=== PATIENT | male | born 1995 | race Caucasian/White ===

== ENCOUNTER 2018-08-11 08:37 | Emergency (ER) | payer OTHER ==
[2018-08-11 08:43] VITALS: BP 139/76
--- NOTE | 2018-08-11 09:39 | ER Document Report ---
ED General - General Chief Complaint: Abscess Stated Complaint: EYE SWOLLEN Time Seen by Provider: 08/11/18 09:27 Notes: Patient is a 22-year-old male that presents to the emergency department for chief complaint of right eye swelling. Patient states that 2 nights ago he noticed a "pimple" above his right eye, he popped it by applying pressure, and it did drain, and then yesterday morning he was wrestling his 3-year-old brother and he was accidentally kicked in that area, causing more swelling over the course of the day so he decided come to the emergency department. He is noticed worsening redness as well and tender to palpate. Denies any fevers, chills, nausea, vomiting, headache, visual change, blurred vision or eye redness itself. He currently rates his pain as a 2 out of 10, describes it as a aching sensation. No other complaints at this time. Past Medical History: Denies chronic medical conditions Past Surgical History: Surgery for undescended testicle Social History: Admits to smoking cigarettes daily, denies alcohol or drug use. Family History: Reviewed and noncontributory for presenting illness Allergies: Reviewed, see documented allergy list. REVIEW OF SYSTEMS: Other than noted above, the 12 point review of systems was reviewed with the patient and were negative, all pertinent findings are included in the HPI. PHYSICAL EXAMINATION: Vital signs reviewed, nursing noted reviewed. GENERAL: Well-appearing, well-nourished and in no acute distress. HEAD: Atraumatic, normocephalic. EYES: There is erythema mild edema located mainly around the right lateral eyebrow, and some preseptal edema as well, no stye present, no conjunctival injection, no pain with extraocular eye movement, EOMI, PERRLA. The left eye is unremarkable. ENT: Moist mucous membranes. NECK: Normal range of motion, supple without lymphadenopathy LUNGS: Breath sounds clear to auscultation bilaterally and equal. No wheezes rales or rhonchi. HEART: Regular rate and rhythm without murmurs EXTREMITIES: Nontender, good range of motion, no pitting or edema. NEUROLOGICAL: No focal neurological deficits. Moves all extremities spontaneously Motor and sensory grossly intact on exam. PSYCH: Normal mood, normal affect. SKIN: Warm, Dry, normal turgor, no rashes or lesions noted on exposed skin TRAVEL OUTSIDE OF THE [place] IN LAST 30 DAYS: No - Related Data Allergies/Adverse Reactions: No Known Allergies Allergy (Verified 08/11/18 08:38) Past Medical History - Social History Smoking Status: Current Every Day Smoker Chew tobacco use (# tins/day): No Frequency of alcohol use: None Drug Abuse: None Family History: Reviewed & Not Pertinent Patient has suicidal ideation: No Patient has homicidal ideation: No Renal/ Medical History: Denies: Hx Peritoneal Dialysis Physical Exam - Vital signs Vitals: Temp Pulse Resp BP Pulse Ox 98.7 F 78 18 139/76 H 98 08/11/18 08:41 08/11/18 08:41 08/11/18 08:41 08/11/18 08:41 08/11/18 08:41 Course - Re-evaluation Re-evalutation: Patient seen and examined, vital signs reviewed. Patient appears well on exam, he did have mild preseptal cellulitis, and tenderness. This was evaluated under ultrasound, there is no appreciable abscess noted, this point will treat with antibiotics and advised warm compresses, patient given prescription for both Keflex and Bactrim and advised to follow-up with her primary care physician. Given strict return precautions patient agreeable to plan of care and discharged. - Vital Signs Vital signs: Temp Pulse Resp BP Pulse Ox 98.7 F 78 18 139/76 H 98 08/11/18 08:41 08/11/18 08:41 08/11/18 08:41 08/11/18 08:41 08/11/18 08:41 Discharge - Discharge Clinical Impression: Facial abscess Condition: Stable Disposition: HOME, SELF-CARE Instructions: Abscess ([facility]), Trimethoprim-Sulfa ([facility]), Cephalexin ([facility]) Additional Instructions: In addition to antibiotics which she should complete the entire course, he should apply warm compress 20 minutes on 20 minutes off at least 4-5 times a day to help with the swelling along your right eye. Please monitor for signs of pain with looking around, or redness in your eye itself, if you develop new symptoms, do not hesitate to return to the emergency department to be evaluated. Prescriptions: Cephalexin Monohydrate [Keflex 500 mg Capsule] 500 mg PO Q8H 5 Days #21 capsule Sulfamethoxazole/Trimethoprim [Bactrim Ds Tablet] 1 each PO BID #14 tablet Referrals: VINNIE DICKINSON MD [ACTIVE STAFF] - Follow up in 3-5 days (or your primary care. )
== END 2018-08-11 09:50 | disposition home or self-care (01) ==
LOC: ER 08:37
DX: L02.01 Cutaneous abscess of face (principal); L03.213 Periorbital cellulitis; F17.210 Nicotine dependence, cigarettes, uncomplicated
CPT/HCPCS: 99283

== ENCOUNTER 2018-12-16 12:34 | Emergency (ER) | payer SELFPAY ==
[2018-12-16 12:41] VITALS: BP 125/64
[2018-12-16] MEDS ORDERED: DOXYCYCLINE HYCLATE 100 MG TABLET PO ONE (13:56)
--- NOTE | 2018-12-16 14:03 | ER Document Report ---
ED Skin Rash/Insect Bite/Abscs - General Chief Complaint: Skin Problem Stated Complaint: SKIN PROBLEM Time Seen by Provider: 12/16/18 13:37 Mode of Arrival: Ambulatory Information source: Patient Notes: 23-year-old male presented to ED for complaint of eczema to his arms legs abdomen back and buttocks. He states he has had eczema his whole life but he is never had these pustules like he does at this time. He is alert oriented respirations regular and unlabored speaking in full sentences. He states he is lost his insurance because he is over 23 and his father had a morning insurance a and he could no longer be on it. He states he has never been to a shadow graph weight operator even though his ask the primary care at [facility] to send him to dermatology multiple times. He states he does have some creams still from home but he was concerned that they may be infected. He is alert oriented respirations regular and unlabored speaking in full sentences. Patient admits that he has been scratching his eczema more than normal. TRAVEL OUTSIDE OF THE [place] IN LAST 30 DAYS: No - HPI Patient complains to provider of: Skin rash/lesion Onset: Other - Chronic Onset/Duration: Persistent Quality of pain: Burning Severity: Moderate Pain Level: 4 Skin Character: Rash, Tenderness, Thickening, Other - Longtime history of eczema he has been scratching his eczema Quality of rash: Itchy, Painful Identify cause: Yes - Chronic history of eczema he has been scratching Exacerbated by: Other - Scratching Relieved by: Denies Similar symptoms previously: Yes Recently seen / treated by doctor: No - Related Data Allergies/Adverse Reactions: No Known Allergies Allergy (Verified 08/11/18 08:38) Past Medical History - General Information source: Patient - Social History Smoking Status: Current Every Day Smoker Cigarette use (# per day): Yes - 3 or 4 cigarettes a day Chew tobacco use (# tins/day): No Smoking Education Provided: Yes - 4 minutes Frequency of alcohol use: Rare Drug Abuse: None Lives with: Family Family History: Reviewed & Not Pertinent Patient has suicidal ideation: No Patient has homicidal ideation: No - Past Medical History Cardiac Medical History: Reports: None Pulmonary Medical History: Reports: None EENT Medical History: Reports: None Neurological Medical History: Reports: None Endocrine Medical History: Reports: None Renal/ Medical History: Reports: Other - Undescended testicle Malignancy Medical History: Reports None GI Medical History: Reports: None Musculoskeletal Medical History: Reports Hx Musculoskeletal Trauma Skin Medical History: Reports Hx Eczema Psychiatric Medical History: Reports: None Traumatic Medical History: Reports: Hx Fractures - Right boxer Infectious Medical History: Reports: None Past Surgical History: Reports: Other - Lowered testicle due to undescended testicle - Immunizations Immunizations up to date: Yes Hx Diphtheria, Pertussis, Tetanus Vaccination: Yes Review of Systems - Review of Systems Constitutional: No symptoms reported EENT: No symptoms reported Cardiovascular: No symptoms reported Respiratory: No symptoms reported Gastrointestinal: No symptoms reported Genitourinary: No symptoms reported Male Genitourinary: No symptoms reported Musculoskeletal: No symptoms reported Skin: Lesions, Rash, Other - Eczema with small pustules due to scratching the area Hematologic/Lymphatic: No symptoms reported Neurological/Psychological: No symptoms reported -: Yes All other systems reviewed and negative Physical Exam - Vital signs Vitals: Temp Pulse Resp BP Pulse Ox 98.8 F 88 16 125/64 99 12/16/18 12:39 12/16/18 12:39 12/16/18 12:39 12/16/18 12:39 12/16/18 12:39 Interpretation: Normal - General General appearance: Appears well, Alert - HEENT Head: Normocephalic, Atraumatic Eyes: Normal Pupils: PERRL - Respiratory Respiratory status: No respiratory distress Chest status: Nontender Breath sounds: Normal Chest palpation: Normal - Cardiovascular Rhythm: Regular Heart sounds: Normal auscultation Murmur: No - Abdominal Inspection: Normal Distension: No distension Bowel sounds: Normal Tenderness: Nontender Organomegaly: No organomegaly - Back Back: Normal, Nontender - Extremities General upper extremity: Normal inspection, Nontender, Normal color, Normal ROM, Normal temperature General lower extremity: Normal inspection, Nontender, Normal color, Normal ROM, Normal temperature, Normal weight bearing. No: Aurora's sign - Neurological Neuro grossly intact: Yes Cognition: Normal Orientation: AAOx4 Rowdy Coma Scale Eye Opening: Spontaneous [place] Coma Scale Verbal: Oriented [place] Coma Scale Motor: Obeys Commands Rowdy Coma Scale Total: 15 Speech: Normal Motor strength normal: LUE, RUE, LLE, RLE Sensory: Normal - Psychological Associated symptoms: Normal affect, Normal mood - Skin Skin Temperature: Warm Skin Moisture: Dry Skin Color: Normal Location of irregularity: Generalized Character of irregularity: Other - Eczema Irregularity with: Tenderness, Thickening, Scaling, Inflammation Course - Vital Signs Vital signs: Temp Pulse Resp BP Pulse Ox 98.8 F 88 16 125/64 99 12/16/18 12:39 12/16/18 12:39 12/16/18 12:39 12/16/18 12:39 12/16/18 12:39 Discharge - Discharge Clinical Impression: Eczema Qualifiers: Eczema type: unspecified Qualified Code(s): L30.9 - Dermatitis, unspecified Condition: Stable Disposition: HOME, SELF-CARE Additional Instructions: Atopic Dematitis (Eczema) You have atopic dermatitis, commonly called eczema. This is a chronic allergic skin condition. It often occurs in families with asthma and hay fever. The skin develops patches of redness, itching and scaling. Eczema often affects the back of the neck, back of the legs, and front of the arms. In children it affects the back of the knees, front of the elbows, and the cheeks. Itching is the main symptom. Eczema can be triggered by dryness, heat, sw eating, and detergents or soap. Scratching makes the rash worse. Food or skin allergy can cause eczema. Emotional stress may also be a factor. Symptoms may get better or worse spontaneously. Generally, the treatment consists of: (1) avoid hot-water baths, (2) avoid using soap on your skin, (3) apply a cortisone cream as needed, and (4) use antihistamines for itching. For severe episodes, oral cortisone medication may be required. Call the doctor if you get worse despite treatment, or if signs of infection occur -- such as spreading redness, red streaks, swollen glands, swelling, or fever. Doxycycline Doxycycline (Vibramycin, Doryx) is an antibiotic of the tetracycline family. This type of drug is useful for infections of the respiratory tract and genital tract, and is sometimes used for intestinal infections. Unlike most tetracyclines, doxycycline can be taken with food. It is longer acting, and (usually) less prone to side effects than regular tetracycline. Tetracycline antibiotics can stain immature teeth and SHOULD NOT BE TAKEN BY CHILDREN, NURSING MOTHERS, OR WOMEN. Tetracyclines can make you more prone to sunburn. Abdominal cramping, nausea, and diarrhea are occasional side effects. Women may experience vaginal yeast infections. Call the doctor at once if you develop hives, itching, shortness of breath, or lightheadedness. STEROID MEDICATION: You have been given a medicine of the cortisone/steroid class. This medication is used to control inflammation or allergy. It is usually only given for a short period of time, until the acute process subsides. There are usually no side effects from short-term use of cortisone-like medications. Some persons feel an increased sense of well-being and are not sleepy at bedtime. Long-term use of cortisone medications is best avoided, unless required for a severe condition. If your condition does not remit, or relapses after the course of corticosteroid medication, you should consult your physician. Please mix Eucerin cream with vitamin E E oil and apply to the affected areas. FOLLOW-UP CARE: If you have been referred to a physician for follow-up care, call the physicians office for an appointment as you were instructed or within the next two days. If you experience worsening or a significant change in your symptoms, notify the physician immediately or return to the Emergency Department at any time for re-evaluation. [facility] 5.0 (4) Home Health Nurse [address] [facility] # b Dr. Ian Reardon, DO 2.7 (12) Home Health Nurse [address] [facility] B [facility] 3.0 (20) [facility] Office Rach Lowry Prescriptions: Doxycycline Hyclate 100 mg PO BID #20 capsule Prednisone [Deltasone 20 mg Tablet] 3 tab PO DAILY 5 Days tablet Forms: Smoking Cessation Education
== END 2018-12-16 14:09 | disposition home or self-care (01) ==
LOC: ER 12:34
DX: L30.9 Dermatitis, unspecified (principal); L08.9 Local infection of the skin and subcutaneous tissue, unspecified; F17.210 Nicotine dependence, cigarettes, uncomplicated; Z71.6 Tobacco abuse counseling
CPT/HCPCS: 99283; 99406